=== PATIENT | male | born 1935 | race Caucasian/White ===

== ENCOUNTER 2022-03-02 12:36 | Inpatient (IN) ==
[2022-03-02] MEDS ORDERED: 0.9 % SODIUM CHLORIDE 1,000 ML IV ONE ×3 (12:48→15:37)
--- NOTE | 2022-03-02 12:57 | Emergency Department Note ---
HPI General Chief complaint: Blood Sugar Problem Stated complaint: UTI Time Seen by Provider: 03/02/22 12:55 Source: patient Mode of arrival: wheelchair Limitations: no limitations History of Present Illness HPI Narrative: 86yo M with PMH of insulin dependent T2DM, HTN, NPH with [employer] shunt dementia, and HTN p/w hyperglycemia. Patient has been progressively fatigued and weaker than usual for the last week. He was diagnosed with a UTI last week and is finishing a course of antibiotics. Family has been checking his blood sugar at home and noted it to be consistently high. He was also diagnosed with COVID via home test this week. Patient is sleepy but arousable. He denies pain anywhere. No GAMA , vision changes, numbness, extremity weakness, chest pain, SOB, cough, dysuria, or leg swelling. also with COVID. Related Data Home Medications Medication Instructions Recorded Confirmed ferrous sulfate 325 mg (65 mg 325 mg PO HS 11/18/16 03/02/22 iron) tablet (Feosol) cyanocobalamin (vitamin B-12) 1,000 mcg PO QDAY 01/20/19 03/02/22 1,000 mcg capsule memantine 10 mg tablet (Namenda) 10 mg PO BID 01/20/19 03/02/22 donepezil 10 mg tablet 20 mg PO HS 03/11/20 03/02/22 aspirin 81 mg tablet,delayed 81 mg PO .every other day 10/30/21 03/02/22 release (Adult Aspirin Regimen) cholecalciferol (vitamin D3) 25 1,000 unit PO BID 10/31/21 03/02/22 mcg (1,000 unit) capsule insulin glargine 100 unit/mL (3 14 unit subcut HS 03/02/22 mL) subcutaneous pen (Lantus Solostar U-100 Insulin) insulin lispro 100 unit/mL 40 unit subcut QDAY 03/02/22 subcutaneous pen (Humalog KwikPen (U-100) Insulin) levothyroxine 50 mcg capsule 50 mcg PO QDAY 03/02/22 03/02/22 lisinopril 40 mg tablet 1 tab PO QDAY blood pressure 03/02/22 03/02/22 omeprazole 40 mg capsule,delayed 40 mg PO DAILY 03/02/22 03/02/22 release tamsulosin 0.4 mg capsule 0.4 mg PO HS 03/02/22 03/02/22 Allergies Allergy/AdvReac Type Severity Reaction Status Date / Time No Known Drug Allergies Allergy Verified 03/02/22 12:47 MRI/shunt AdvReac Unknown Other Uncoded 12/12/21 09:17 Review of Systems ROS ROS Narrative: Narrative: Constitutional: Denies fever Eyes: Denies vision change ENT ED: Denies throat pain Cardiovascular: Denies chest pain Respiratory: Denies shortness of breath or cough Gastrointestinal: Denies abdominal pain, nausea or vomiting Genitourinary: Denies dysuria Integumentary: Denies rash Neurological: Reports weakness; Denies headache Psychiatric: Denies anxiety Endocrine: Reports fatigue; Denies heat or cold intolerance Hematological/Lymphatic: Denies easy bruising PFSH Narrative Patient History Narrative: Narrative: Medical/Surgical/Family History All Active Problems (Updated 03/02/22 @ 22:07 by Jonathan Dong MD) DKA (diabetic ketoacidosis) (Acute) High anion gap metabolic acidosis (Acute) Complicated UTI (urinary tract infection) (Acute) COVID-19 (Acute) Severe hyperglycemia due to diabetes mellitus (Acute) DKA (diabetic ketoacidosis) (Acute) Acid reflux (Chronic) Hyperlipidemia (Chronic) Impotence, organic (Chronic) Tinnitus (Chronic) Benign localized prostatic hyperplasia with lower urinary tract symptoms (LUTS) (Chronic) Carotid stenosis, right (Chronic) Elevated PSA (Chronic) HTN (hypertension) (Chronic) Hypothyroidism (Chronic) Anemia (Chronic) Normal pressure hydrocephalus (Chronic) Paresthesia and pain of right extremity (Acute) Hypovitaminosis D (Chronic) Cantu's esophagus (Chronic) Pulmonary infiltrate (Acute) Solitary pulmonary nodule (Chronic) Encounter for Medicare annual wellness exam (Acute) Wound of foot (Acute) Urinary frequency (Acute) Incomplete emptying of bladder (Acute) Urinary stress incontinence, male (Acute) 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, with long-term current use of insulin (Chronic) 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) Physical deconditioning (Chronic) Dementia (Chronic) Medical History Acid reflux Benign localized prostatic hyperplasia with lower urinary tract symptoms (LUTS) Dementia 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, with long-term current use of insulin Encounter for Medicare annual wellness exam Hyperlipidemia Impotence, 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 Normal pressure hydrocephalus Physical deconditioning Pulmonary infiltrate Solitary pulmonary nodule Tinnitus Left ear Urinary frequency Surgical History H/O colonoscopy History of intraocular lens implant Bilateral History of tonsillectomy and adenoidectomy History of 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.0 Hx of appendectomy Family History Unknown Asthma Diabetes Cancer Ischemic heart disease Father , at age 36 , instantaneous from appendicitis Social History Smoking Status: Never smoker Alcohol Intake Frequency: does not drink Substance Use: does not use Exam Narrative Narrative: Narrative: General Limitations: no limitations General appearance: Present other (sleepy but arousable) Head Head: Present atraumatic and normocephalic Eye Eye: Present normal appearance, PERRL and EOMI; Absent scleral icterus, conjunctival injection or nystagmus ENT ENT: Present mucous membranes moist Neck Neck: Present normal inspection, full ROM, trachea midline and tenderness; Absent meningismus Chest Chest: Present symmetric chest wall rise Respiratory Respiratory: Present normal lung sounds bilaterally; Absent respiratory distress, rales/crackles, wheezes, stridor or accessory muscle use Cardiovascular Cardiovascular: Present regular rate and normal rhythm; Absent systolic murmur or diastolic murmur Adbominal Abdominal: Present soft; Absent distention, tenderness, guarding, rebound, rigidity or mass Extremities Extremities: Present normal inspection; Absent pretibial edema Back Back: Absent CVA tenderness (R) or CVA tenderness (L) Neurological Neurological: Present alert, oriented X3 and CN II-XII intact; Absent motor sensory deficit Psychiatric Psychiatric: Present normal affect and normal mood Skin Skin: Present warm (WNL) and dry Course Vital Signs Vital signs: Vital Signs Temperature 98.7 F 03/02/22 12:45 Pulse Rate 73 03/02/22 12:45 Respiratory Rate 14 03/02/22 12:45 Blood Pressure 134/70 03/02/22 12:45 Pulse Oximetry (%) 95 03/02/22 12:45 Oxygen Delivery Method 03/02/22 12:45 Temperature 98.4 F 03/02/22 21:24 Pulse Rate 77 03/02/22 21:24 Respiratory Rate 16 03/02/22 21:24 Blood Pressure 145/68 03/02/22 21:20 Pulse Oximetry (%) 94 03/02/22 21:24 Oxygen Delivery Method 03/02/22 19:44 Oxygen Flow Rate (L/min) 0 03/02/22 18:02 MDM MDM Narrative Medical decision making narrative: 86yo M p/w hyperglycemia and weakness. VS are stable. Glucose is 666, mild acidosis present with elevated lactic acid, elevated ketones, and elevated anion gap consistent with DKA. 2L NS given. K is 4.6, addition 20mEq ordered. Insulin drip ordered at 7u/h. CXR with no acute findings. UA is pending. Laboratory results per ED i-STAT testing: Chem8 Na: 135 K: 4.6 Cl: 102 iCa: 1.19 CO2: 16 Glu: 666 BUN: 52 Crea: 1.7 A Hct: 42 VBG pH:7.291 pCO: 30.8 pO2: 35 HCO3: 14.8 Lactate: 2.[address] Vaughn hospitalist. Will admit for DKA, patient and family understanding with plan. Lab Data Lab results reviewed: Yes I reviewed the patient's lab results. Result diagrams: 03/02/22 12:55 03/02/22 16:51 Labs: Lab Results 03/02/22 03/02/22 03/02/22 Range/Units 12:55 12:55 12:55 WBC 10.9 (4.5-11.0) K/mcL RBC 4.50 L (4.63-6.08) M/mcL Hgb 13.1 L (13.7-17.5) g/dL Hct 41.0 (40.1-51.0) % MCV 91.1 (80.0-100.0) fL MCH 29.1 (26.0-34.0) pg MCHC 32.0 (31.0-36.0) g/dL RDW 13.9 (11.5-14.5) % Plt Count 354 (140-440) K/mcL MPV 9.6 (7.4-10.4) fL Immature Gran % (Auto) 0.2 (0.0-0.5) % Neut % (Auto) 87.3 H (38.0-78.0) % Lymph % (Auto) 6.2 L (15.5-49.0) % [place] % (Auto) 6.2 (1.0-12.0) % Eos % (Auto) 0 (0.0-7.0) % Baso % (Auto) 0.1 (0.0-2.0) % Lymph # (Auto) 0.68 L (1.50-4.80) K/mcL [place] # (Auto) 0.67 (0.10-0.90) K/mcL Eos # (Auto) 0 (0.00-0.70) K/mcL Baso # (Auto) 0.01 (0.00-0.30) K/mcL Immature Gran # 0.02 (0.00-0.05) K/mcl Absolute Neutrophils 9.51 H (1.80-8.00) K/mcL Magnesium 2.8 H (1.6-2.5) mg/dL Beta-Hydroxybutyrate 6.68 H (<0.27) mmol/L ED POC Tests ED POC Tests: JENNIFER - SARS Antigen Negative Radiology Data Radiology results reviewed: Yes I reviewed the patient's radiology results. Radiology results narrative: Ordering Physician:Jonathan Dong M.D. Date of Service:03/02/22 Procedure(s):XR chest 1V portable INDICATION: weakness, COVID + TECHNIQUE: AP portable semiupright chest x-ray COMPARISON: Previous chest CT scans dated 02/23/2018, 11/03/2017, 07/29/2017 FINDINGS:Incidental note is made of a right-sided ventriculoperitoneal shunt catheter Lungs:Focal parenchymal density in the superior segment of the left lower lobe is not visualized. No focal pulmonary parenchymal infiltrate or mass Heart, vascular:No significant cardiomegaly. Pulmonary vascularity is normal. No pulmonary edema or pulmonary congestion Mediastinum, jorge:No mediastinal widening. No hilar mass Pleura:No pleural fluid. No pleural-based mass or calcification Skeletal:Negative. IMPRESSION: Negative AP chest x-ray Interpreted and Authenticated by: Sixto Meneses 03/02/22 [id number] Supervisor Transcribing Operators: <Electronically signed by Sixto Meneses M.D. in [place]> 03/02/22 1331 Discharge Plan Patient/Caregiver Discharge Instructions Pt seen by VASCULAR MANAGER/PA only: No Clinical Impression: DKA (diabetic ketoacidosis) Patient Disposition: Xfer As Inpt ([facility]) Condition: Fair Discharge Date/Time: 03/02/22 16:30
--- NOTE | 2022-03-02 13:35 | XRay Report ---
INDICATION: weakness, COVID + TECHNIQUE: AP portable semiupright chest x-ray COMPARISON: Previous chest CT scans dated 02/23/2018, 11/03/2017, 07/29/2017 FINDINGS:Incidental note is made of a right-sided ventriculoperitoneal shunt catheter Lungs:Focal parenchymal density in the superior segment of the left lower lobe is not visualized. No focal pulmonary parenchymal infiltrate or mass Heart, vascular:No significant cardiomegaly. Pulmonary vascularity is normal. No pulmonary edema or pulmonary congestion Mediastinum, jorge:No mediastinal widening. No hilar mass Pleura:No pleural fluid. No pleural-based mass or calcification Skeletal:Negative. IMPRESSION: Negative AP chest x-ray Interpreted and Authenticated by: Sixto Meneses 03/02/22
[2022-03-02 14:10] LABS: Basophils # (Auto) 0.01 K/mcL (0.00-0.30); Basophils % (Auto) 0.1 % (0.0-2.0); Eosinophils # (Auto) 0 K/mcL (0.00-0.70); Eosinophils % (Auto) 0 % (0.0-7.0); Hemoglobin 13.1 g/dL (13.7-17.5); Lymphocytes # (Auto) 0.68 K/mcL (1.50-4.80); Lymphocytes % (Auto) 6.2 % (15.5-49.0); Mean Cell Volume 91.1 fL (80.0-100.0); Mean Platelet Volume 9.6 fL (7.4-10.4); Monocytes # (Auto) 0.67 K/mcL (0.10-0.90); Monocytes % (Auto) 6.2 % (1.0-12.0); Neutrophils % (Auto) 87.3 % (38.0-78.0); Platelet Count 354 K/mcL (140-440); Red Cell Distribution Width 13.9 % (11.5-14.5); WBC 10.9 K/mcL (4.5-11.0)
[2022-03-02 14:41] LABS: Beta Hydroxybutyrate 6.68 mmol/L (<0.27)
[2022-03-02] MEDS ORDERED: POTASSIUM CHLORIDE 20 MEQ in DEXTROSE 5% IN WATER 250 ML IV ONE (15:25)
[2022-03-02] MEDS: INSULIN REGULAR, HUMAN 50 UNIT in 0.9 % SODIUM CHLORIDE 99.5 ML IV SCH ×2 (16:05→21:15)
[2022-03-02] MEDS ORDERED: ACETAMINOPHEN 325 MG TABLET PO PRN (16:35)
[2022-03-02] MEDS ORDERED: ONDANSETRON 4 MG/2 ML VIAL IV PRN (16:35)
[2022-03-02] MEDS ORDERED: INSULIN REGULAR, HUMAN 1 UNIT/0.01 ML UNIT IV PRN (17:00)
--- NOTE | 2022-03-02 17:11 | Internal Med History&Physical ---
HPI History of Present Illness Patient information: Note initiated : 03/02/22 at 5:05 pm Service Date, if different from initiated Date: [] Patient: Ronald Purcell a 86 y/o M admitted on 03/02/22 for UTI. Chief Complaint: [AMS, hyperglycemia] Chief complaint: DKA History of present illness: Mr. Purcell is a 86 year old M with a past medical history significant for normal pressure hydrocephalus status post [employer] shunt, dementia, insulin-dependent diabetes mellitus, hypothyroidism, and hypertension who presents to the hospital with severe hyperglycemia. The patient is unable to provide a reliable history however the and daughter were present at the bedside to provide a secondhand account. They state that for the last 2 days, they have been having difficulty controlling the patient's blood sugars despite insulin. He has not had much of an appetite. He has not been eating or drinking much. The patient was recently diagnosed with COVID-19 last week and was treated with Paxlovid. Unfortunately, the patient also developed a urinary tract infection and was treated with cefuroxime. On arrival, he was hemodynamically stable and afebrile. He was found to have a blood sugar greater than 600. His anion gap was elevated and he was found to be acidotic. He was positive for ketones. He was given 2 L bolus in the ER and started on an insulin infusion. The hospitalist service was asked admit the patient for further management and evaluation of his diabetic ketoacidosis Review of Systems ROS unobtainable: due to mental status PFSH PFSH All Active Problems (Updated 03/02/22 @ 17:10 by Pal Vaughn MD) High anion gap metabolic acidosis (Acute) Complicated UTI (urinary tract infection) (Acute) COVID-19 (Acute) Severe hyperglycemia due to diabetes mellitus (Acute) DKA (diabetic ketoacidosis) (Acute) Acid reflux (Chronic) Hyperlipidemia (Chronic) Impotence, organic (Chronic) Tinnitus (Chronic) Benign localized prostatic hyperplasia with lower urinary tract symptoms (LUTS) (Chronic) Carotid stenosis, right (Chronic) Elevated PSA (Chronic) HTN (hypertension) (Chronic) Hypothyroidism (Chronic) Anemia (Chronic) Normal pressure hydrocephalus (Chronic) Paresthesia and pain of right extremity (Acute) Hypovitaminosis D (Chronic) Cantu's esophagus (Chronic) Pulmonary infiltrate (Acute) Solitary pulmonary nodule (Chronic) Encounter for Medicare annual wellness exam (Acute) Wound of foot (Acute) Urinary frequency (Acute) Incomplete emptying of bladder (Acute) Urinary stress incontinence, male (Acute) 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, with long-term current use of insulin (Chronic) 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) Physical deconditioning (Chronic) Dementia (Chronic) Medical History Acid reflux Benign localized prostatic hyperplasia with lower urinary tract symptoms (LUTS) Dementia 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, with long-term current use of insulin Encounter for Medicare annual wellness exam Hyperlipidemia Impotence, 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 Normal pressure hydrocephalus Physical deconditioning Pulmonary infiltrate Solitary pulmonary nodule Tinnitus Left ear Urinary frequency Surgical History H/O colonoscopy History of intraocular lens implant Bilateral History of tonsillectomy and adenoidectomy History of 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.0 Hx of appendectomy Family History Unknown Asthma Diabetes Cancer Ischemic heart disease Father , at age 36 , instantaneous from appendicitis Social History marital status: education level: college other: Children-10 Grandchildren-33 smoking status: Never smoker alcohol intake frequency: does not drink substance use type: does not use MEDS/ALLERGIES Home Medications and Allergies Home Medications Medication Instructions Recorded Confirmed Type ferrous sulfate 325 mg (65 mg 325 mg PO QDAY 11/18/16 12/12/21 History iron) tablet (Feosol) cyanocobalamin (vitamin B-12) 1,000 mcg PO QDAY 01/20/19 12/12/21 History 1,000 mcg capsule memantine 10 mg tablet (Namenda) 10 mg PO BID 01/20/19 12/12/21 History donepezil 10 mg tablet 10 mg PO BID 03/11/20 12/12/21 History aspirin 81 mg tablet,delayed 81 mg PO .every other day 10/30/21 12/12/21 History release (Adult Aspirin Regimen) omeprazole 40 mg capsule,delayed 40 mg PO QDAY #90 caps 04/14/22 05/27/22 Rx release cholecalciferol (vitamin D3) 25 1,000 unit PO .daily 10/31/21 12/12/21 History mcg (1,000 unit) capsule tamsulosin 0.4 mg capsule 0.4 mg PO QDAY #90 caps 11/26/21 12/12/21 Rx insulin glargine 100 unit/mL (3 14 unit subcut HS 03/02/22 03/02/22 History mL) subcutaneous pen (Lantus Solostar U-100 Insulin) insulin lispro 100 unit/mL 40 unit subcut QDAY 03/02/22 03/02/22 History subcutaneous pen (Humalog KwikPen (U-100) Insulin) lisinopril 40 mg tablet 1 tab PO QDAY blood pressure 03/02/22 03/02/22 History Allergies Allergy/AdvReac Type Severity Reaction Status Date / Time No Known Drug Allergies Allergy Verified 03/02/22 12:47 MRI/shunt AdvReac Unknown Other Uncoded 12/12/21 09:17 EXAM Constitutional Vitals: Temp Pulse Resp BP Pulse Ox O2 Del Method 98.7 F 74 19 171/78 97 03/02/22 12:45 03/02/22 16:16 03/02/22 16:16 03/02/22 16:16 03/02/22 16:16 03/02/22 13:30 General appearance: average body habitus Head Head exam: Present atraumatic, normal inspection and normocephalic Eye Eye exam: Present EOMI, normal appearance and PERRL; Absent conjunctival injection ENT ENT exam: Present mucous membranes dry and normal exam Neck Neck exam: Present full ROM; Absent lymphadenopathy Respiratory Respiratory exam: Present normal respiratory exam and CTAB; Absent decreased breath sounds, respiratory distress or wheezes Cardiovascular Cardiovascular exam: Present normal rate and rhythm and RRR; Absent JVD GI/Abdominal GI/Abdominal exam: Present normal bowel sounds and soft; Absent diminished bowel sounds, distended, guarding, mass, rebound or tenderness Neurological Exam Neurological exam: Present alert and altered Psychiatric Psychiatric exam: Present normal affect and normal mood Skin Skin exam: Present intact and warm; Absent erythema, pallor, petechiae or rash DATA Data Completed and Pending Labs: Labs from last 24 hours 03/02/22 03/02/22 03/02/22 16:51 12:55 12:55 WBC RBC Hgb Hct MCV MCH MCHC RDW Plt Count MPV Immature Gran % (Auto) Neut % (Auto) Lymph % (Auto) [place] % (Auto) Eos % (Auto) Baso % (Auto) Lymph # (Auto) [place] # (Auto) Eos # (Auto) Baso # (Auto) Immature Gran # Absolute Neutrophils Sodium Pending Potassium Pending Chloride Pending Carbon Dioxide Pending Anion Gap Pending BUN Pending Creatinine Pending GFR Calculation Pending Glucose Pending Calcium Pending Magnesium 2.8 H Beta-Hydroxybutyrate 6.68 H 03/02/22 12:55 WBC 10.9 RBC 4.50 L Hgb 13.1 L Hct 41.0 MCV 91.1 MCH 29.1 MCHC 32.0 RDW 13.9 Plt Count 354 MPV 9.6 Immature Gran % (Auto) 0.2 Neut % (Auto) 87.3 H Lymph % (Auto) 6.2 L [place] % (Auto) 6.2 Eos % (Auto) 0 Baso % (Auto) 0.1 Lymph # (Auto) 0.68 L [place] # (Auto) 0.67 Eos # (Auto) 0 Baso # (Auto) 0.01 Immature Gran # 0.02 Absolute Neutrophils 9.51 H Sodium Potassium Chloride Carbon Dioxide Anion Gap BUN Creatinine GFR Calculation Glucose Calcium Magnesium Beta-Hydroxybutyrate A/P Assessment and plan (1) Dementia: Status: Chronic Qualifiers: Dementia type: unspecified type Dementia behavioral disturbance: without behavioral disturbance Qualified Code(s): F03.90 - Unspecified dementia without behavioral disturbance (2) Hypothyroidism: Status: Chronic Qualifiers: Hypothyroidism type: acquired Qualified Code(s): E03.9 - Hypothyroidism, unspecified (3) HTN (hypertension): Status: Chronic Qualifiers: Hypertension type: essential hypertension Qualified Code(s): I10 - Essential (primary) hypertension (4) Normal pressure hydrocephalus: Status: Chronic (5) DKA (diabetic ketoacidosis): Status: Acute (6) Severe hyperglycemia due to diabetes mellitus: Status: Acute (7) COVID-19: Status: Acute (8) Complicated UTI (urinary tract infection): Status: Acute (9) High anion gap metabolic acidosis: Status: Acute Narrative A/P Narrative: The patient likely developed diabetic ketoacidosis due to underlying infectious process as he was diagnosed with COVID and a urinary tract infection unfortunately. In terms of his DKA, we will continue insulin infusion and when his blood sugars drop below 300, will start D5W. We will stop the insulin infusion once his anion gap is closed. We will monitor and replete his electrolytes closely. Continue LR 100 cc an hour. The patient will be started on ceftriaxone for his urinary tract infection. We will touch base with infection prevention regarding isolation precautions. His medication reconciliation is pending. Time Spent With Patient Time: Total time spent is greater than 50% in coordination of care (as documented) at patient's floor/unit and/or counseling patient: Total time spent with greater than 50% in coordination of care (as documented) at patient's floor/unit and/or counseling patient:: Greater than 70 minutes
[2022-03-02] MEDS: cefTRIAXone 1 GM VIAL IV SCH (17:12)
[2022-03-02] MEDS ORDERED: INSULIN REGULAR, HUMAN 1 UNIT/0.01 ML UNIT ONE ×2 (17:20→21:13)
[2022-03-02] MEDS: LACTATED RINGERS 1,000 ML IV SCH (18:08)
[2022-03-02] MEDS: DEXTROSE 5%-1/2NS 1,000 ML IV SCH (20:05)
[2022-03-02 20:36] LABS: Blood Urea Nitrogen 50 mg/dL (8-23); Calcium 8.5 mg/dL (8.6-10.4); Carbon Dioxide 16 mmol/L (22-30); Chloride 103 mmol/L (96-108); Glomerular Filtration Rate 41; Glucose 521 mg/dL (70-105)
[2022-03-02] MEDS: 0.9 % SODIUM CHLORIDE 10 ML SYRINGE IV SCH (21:13)
[2022-03-03 00:04] LABS: Blood Urea Nitrogen 44 mg/dL (8-23); Calcium 8.6 mg/dL (8.6-10.4); Carbon Dioxide 20 mmol/L (22-30); Chloride 110 mmol/L (96-108); Glomerular Filtration Rate 49; Glucose 203 mg/dL (70-105)
[2022-03-03] MEDS: LACTATED RINGERS 1,000 ML IV SCH ×3 (01:00→21:53)
[2022-03-03] MEDS ORDERED: DEXTROSE 50% 50 ML SYRINGE IV ONE (03:34)
[2022-03-03] MEDS ORDERED: DEXTROSE 50% 50 ML SYRINGE IV PRN (05:52)
[2022-03-03] MEDS: 0.9 % SODIUM CHLORIDE 10 ML SYRINGE IV SCH ×3 (06:04→20:32)
[2022-03-03] MEDS: DEXTROSE 5%-1/2NS 1,000 ML IV SCH (06:04)
[2022-03-03 06:10] LABS: Basophils # (Auto) 0.01 K/mcL (0.00-0.30); Basophils % (Auto) 0.1 % (0.0-2.0); Eosinophils # (Auto) 0 K/mcL (0.00-0.70); Eosinophils % (Auto) 0 % (0.0-7.0); Hematocrit 35.4 % (40.1-51.0); Hemoglobin 11.4 g/dL (13.7-17.5); Lymphocytes % (Auto) 4.4 % (15.5-49.0); Mean Cell Volume 90.8 fL (80.0-100.0); Mean Corpuscular HGB Conc 32.2 g/dL (31.0-36.0); Mean Platelet Volume 9.5 fL (7.4-10.4); Monocytes # (Auto) 1.08 K/mcL (0.10-0.90); Neutrophils % (Auto) 83.3 % (38.0-78.0); Platelet Count 261 K/mcL (140-440)
[2022-03-03 06:43] LABS: Phosphorous 1.8 mg/dL (2.5-4.5)
[2022-03-03 06:44] LABS: Blood Urea Nitrogen 39 mg/dL (8-23); Calcium 8.4 mg/dL (8.6-10.4); Carbon Dioxide 16 mmol/L (22-30); Chloride 110 mmol/L (96-108); Glomerular Filtration Rate 60; Glucose 193 mg/dL (70-105)
[2022-03-03] MEDS ORDERED: DEXTROSE 50% 50 ML VIAL IV PRN (08:28)
[2022-03-03] MEDS ORDERED: DEXTROSE 31 GM ORAL.SUSP PO PRN (08:28)
[2022-03-03] MEDS: ENOXAPARIN 40 MG/0.4 ML SYRINGE SQ SCH (08:37)
[2022-03-03] MEDS: INSULIN LISPRO 1 UNIT/0.01 ML UNIT SQ SCH ×4 (08:38→20:31)
[2022-03-03] MEDS: INSULIN GLARGINE, HUMAN 1 UNIT/0.01 ML SQ SCH (08:38)
[2022-03-03] MEDS: cefTRIAXone 1 GM VIAL IV SCH (08:38)
[2022-03-03] MEDS: OMEPRAZOLE 20 MG CAPSULE PO SCH (08:38)
[2022-03-03] MEDS: MEMANTINE 10 MG TABLET PO SCH ×2 (08:53→20:31)
--- NOTE | 2022-03-03 11:59 | Internal Med Progress Note ---
SUBJECTIVE Subjective Patient information: Note initiated : 03/03/22 at 11:56 am Service Date, if different from initiated Date: [] Patient: Ronald Purcell 86 y/o M admitted on 03/02/22 for UTI. Chief Complaint: [Hyperglycemia] Principal diagnosis: DKA, recent urinary tract infection, recent COVID-19 infection Interval history: The patient's insulin infusion was stopped last night. He is doing well. His blood sugar are better controlled. There is no issues with sundowning or behavioral disturbance. He remains calm and cooperative. Discussed the case with the RN. Constitutional Vitals: Vital Signs Temp Pulse Resp BP Pulse Ox O2 Del Method O2 Flow Rate 99.3 F H 78 27 H 124/66 96 0 03/03/22 08:01 03/03/22 11:00 03/03/22 11:00 03/03/22 11:00 03/03/22 11:00 03/03/22 02:01 03/02/22 18:02 Period Temp Pulse Resp BP Sys/Saravia Pulse Ox O2 Del Method O2 Flow Rate Last 24 Hr 98.1 F-99.3 F 61-83 14-27 118-176/60-90 91-100 Room Air-Room Air 0-0 Intake and Output 03/02/22 03/03/22 03/03/22 21:59 05:59 13:59 Intake Total 2407 2208 1007 Output Total 1 875 Balance 2406 1333 1007 Weight 57.294 kg Intake & Output: Intake & Output 03/02/22 03/03/22 03/03/22 21:59 05:59 13:59 Intake Total 2407 2208 1007 Output Total 1 875 Balance 2406 1333 1007 Weight 57.294 kg Intake: IV 2407 2208 607 Sodium Chloride 0.9% 1,000 ml @ 2108 1000 500 mls/hr IV .Q2H ONE Rx#: [id number] Dextrose 5%-1/2Ns IV Solution 1 465 ,000 ml @ 100 mls/hr IV .Q10H DEAN Rx#:[id number] HumuLIN R 50 UNIT In Sodium 100 86 Chloride 0.9% 99.5 ml @ 7 UNIT/ HR 14 mls/hr IV DUR DEAN Rx#: [id number] Lactated Ringers 1,000 ml @ 100 195 393 607 mls/hr IV .Q10H DEAN Rx#: [id number] Potassium Chloride 20 Meq In 4 264 Dextrose 5% in Water 250 ml @ 130 mls/hr IV ONCE ONE Rx#: [id number] Oral 400 Output: Urine Catheter Amount 875 Void Amount 0 # of times incontinent of urine 1 Other: Meal Breakfast Percent of Meal Consumed 25% Feeding Ability Assist with Tray Set Up Urine Appearance Clear Uretheral (Grier) Clear Urine Color Dark Yellow Uretheral (Grier) Dark Yellow Urine Odor Strong Uretheral (Grier) Strong Stool Size Small Large Stool Color Brown Brown Stool Consistency Soft Soft Liquid # Voids 0 # Bowel Movements 0 1 1 # of times incontinent of 0 1 1 Bowels Head Head exam: Present atraumatic and normal inspection Eye Eye exam: Present normal appearance ENT ENT exam: Present mucous membranes moist, normal exam and normal external ear exam Neck Neck exam: Present normal inspection Respiratory Respiratory exam: Present normal respiratory exam Cardiovascular Cardiovascular exam: Present normal rate and rhythm GI/Abdominal GI/Abdominal exam: Present normal bowel sounds Back Exam Back exam: Present normal inspection Neurological Exam Neurological exam: Present alert Skin Skin exam: Present intact and warm OBJ DATA Labs CBC & Chem 7: 03/03/22 05:28 03/03/22 05:28 Labs: Abnormal Lab Results 03/03/22 03/03/22 03/03/22 05:28 05:28 05:28 RBC 3.90 L Hgb 11.4 L Hct 35.4 L Neut % (Auto) 83.3 H Lymph % (Auto) 4.4 L Lymph # (Auto) 0.40 L Terrell # (Auto) 1.08 H Absolute Neutrophils Chloride 110 H Carbon Dioxide 16 L Anion Gap BUN 39 H Creatinine Glucose 193 H Calcium 8.4 L Phosphorus 1.8 L Magnesium Beta-Hydroxybutyrate 03/02/22 03/02/22 03/02/22 22:45 16:51 12:55 RBC Hgb Hct Neut % (Auto) Lymph % (Auto) Lymph # (Auto) Terrell # (Auto) Absolute Neutrophils Chloride 110 H Carbon Dioxide 20 L 16 L Anion Gap 19.0 H BUN 44 H 50 H Creatinine 1.3 H 1.5 H Glucose 203 H 521 H* Calcium 8.5 L Phosphorus Magnesium 2.8 H Beta-Hydroxybutyrate 03/02/22 03/02/22 12:55 12:55 RBC 4.50 L Hgb 13.1 L Hct Neut % (Auto) 87.3 H Lymph % (Auto) 6.2 L Lymph # (Auto) 0.68 L Terrell # (Auto) Absolute Neutrophils 9.51 H Chloride Carbon Dioxide Anion Gap BUN Creatinine Glucose Calcium Phosphorus Magnesium Beta-Hydroxybutyrate 6.68 H Meds: Medications Acetaminophen (Acetaminophen 325 Mg Tablet) 650 mg PO Q4-6HP PRN; Protocol PRN Reason: Per Pain Protocol/Fever > 101 Ceftriaxone Sodium (Ceftriaxone 1 Gm Vial) 1 gm IV Q24H DEAN; Protocol Last Admin: 03/03/22 08:38 Dose: 1 gm Dextrose (Dextrose 50% 50 Ml Syringe) 50 ml IV UD PRN PRN Reason: Hypoglycemia Dextrose (Dextrose 50% 50 Ml Vial) 0 ml IV UD PRN PRN Reason: Per Sliding Scale Diagnostic Test (Pha) (Accu-Chek 1 Each Strip) 1 each FS ACHS [facility] Last Admin: 03/03/22 11:00 Dose: 1 each Donepezil HCl (Donepezil 10 Mg Tablet) 20 mg PO HS DEAN Enoxaparin Sodium (Enoxaparin 40 Mg/0.4 Ml Syringe) 40 mg SQ DAILY [facility] Last Admin: 03/03/22 08:37 Dose: 40 mg Glucose (Dextrose 31 Gm Oral.Susp) 15 gm PO PRN PRN PRN Reason: Hypoglycemia Insulin Human Regular 50 unit/ (Sodium Chloride) 100 mls @ 14 mls/hr IV DUR [facility]; Protocol Last Titration: 03/03/22 01:00 Dose: Infused Lactated Ringer's (Lactated Ringers) 1,000 mls @ 100 mls/hr IV .Q10H DEAN Last Admin: 03/03/22 11:44 Dose: 100 mls/hr Dextrose/Sodium Chloride (Dextrose 5%-1/2ns Iv Solution) 1,000 mls @ 100 mls/hr IV .Q10H DEAN Last Admin: 03/03/22 06:04 Dose: Not Given Insulin Glargine (Insulin Glargine, Human 1 Unit/0.01 Ml) 30 unit SQ DAILY [facility] Last Admin: 03/03/22 08:38 Dose: 30 units Insulin Human Lispro (Insulin Lispro 1 Unit/0.01 Ml Unit) 0 unit SQ [facility]; Protocol Last Admin: 03/03/22 11:02 Dose: 6 units Insulin Human Regular (Insulin Regular, Human 1 Unit/0.01 Ml Unit) 6 unit IV Q1HP PRN PRN Reason: Insulin drip protocol Memantine (Memantine 10 Mg Tablet) 10 mg PO BID [facility] Last Admin: 03/03/22 08:53 Dose: 10 mg Omeprazole (Omeprazole 20 Mg Capsule) 40 mg PO DAILY [facility] Last Admin: 03/03/22 08:38 Dose: 40 mg Ondansetron HCl (Ondansetron 4 Mg/2 Ml Vial) 4 mg IV Q4-6HP PRN; Protocol PRN Reason: Nausea And Vomiting Sodium Chloride (0.9 % Sodium Chloride 10 Ml Syringe) 10 ml IV Q8 [facility] Last Admin: 03/03/22 06:04 Dose: Not Given Tamsulosin HCl (Tamsulosin 0.4 Mg Capsule) 0.4 mg PO HS [facility] A/P Assessment and plan (1) Dementia: Status: Chronic Qualifiers: Dementia type: unspecified type Dementia behavioral disturbance: without behavioral disturbance Qualified Code(s): F03.90 - Unspecified dementia without behavioral disturbance (2) Hypothyroidism: Status: Chronic Qualifiers: Hypothyroidism type: acquired Qualified Code(s): E03.9 - Hypothyroidism, unspecified (3) HTN (hypertension): Status: Chronic Qualifiers: Hypertension type: essential hypertension Qualified Code(s): I10 - Essential (primary) hypertension (4) Normal pressure hydrocephalus: Status: Chronic (5) DKA (diabetic ketoacidosis): Status: Acute (6) Severe hyperglycemia due to diabetes mellitus: Status: Acute (7) COVID-19: Status: Acute (8) Complicated UTI (urinary tract infection): Status: Acute (9) High anion gap metabolic acidosis: Status: Acute Narrative A/P Narrative: The patient likely developed diabetic ketoacidosis due to underlying infectious process as he was diagnosed with COVID and a urinary tract infection u nfortunately. In terms of his DKA, we will continue insulin infusion and when his blood sugars drop below 300, will start D5W. We will stop the insulin infusion once his anion gap is closed. We will monitor and replete his electrolytes closely. Continue LR 100 cc an hour. The patient will be started on ceftriaxone for his urinary tract infection. We will touch base with infection prevention regarding isolation precautions. His medication reconciliation is pending. 03/03: The patient's anion gap has now closed. I have started Lantus 30 units daily and insulin sliding scale. Her carb controlled diet has been resumed. He will continue ceftriaxone for his urinary tract infection. The patient is asymptomatic from a respiratory standpoint. He will need to work with physical therapy and Occupational Therapy. He may need a [facility] facility. The states that she has trouble looking after him at home. Time Spent With Patient Time: Total time spent is greater than 50% in coordination of care (as documented) at patient's floor/unit and/or counseling patient: Total time spent with greater than 50% in coordination of care (as documented) at patient's floor/unit and/or counseling patient:: 35 - 50 minutes QUALITY VTE Deep Vein Thrombosis/Pulmonary Embolism Present on Admission: No
[2022-03-03] MEDS: LISINOPRIL 20 MG TABLET PO SCH (19:02)
[2022-03-03] MEDS: TAMSULOSIN 0.4 MG CAPSULE PO SCH (20:31)
[2022-03-03] MEDS: DONEPEZIL 10 MG TABLET PO SCH (20:31)
[2022-03-04] MEDS: 0.9 % SODIUM CHLORIDE 10 ML SYRINGE IV SCH ×3 (05:41→21:02)
[2022-03-04 06:00] LABS: Basophils # (Auto) 0.01 K/mcL (0.00-0.30); Basophils % (Auto) 0.1 % (0.0-2.0); Eosinophils # (Auto) 0.01 K/mcL (0.00-0.70); Eosinophils % (Auto) 0.1 % (0.0-7.0); Hematocrit 36.3 % (40.1-51.0); Hemoglobin 11.9 g/dL (13.7-17.5); Lymphocytes # (Auto) 0.47 K/mcL (1.50-4.80); Lymphocytes % (Auto) 5.4 % (15.5-49.0); Mean Cell Volume 89.2 fL (80.0-100.0); Mean Corpuscular HGB Conc 32.8 g/dL (31.0-36.0); Mean Platelet Volume 9.6 fL (7.4-10.4); Monocytes # (Auto) 0.85 K/mcL (0.10-0.90); Monocytes % (Auto) 9.8 % (1.0-12.0); Neutrophils % (Auto) 84.4 % (38.0-78.0); Platelet Count 253 K/mcL (140-440); RBC 4.07 M/mcL (4.63-6.08); Red Cell Distribution Width 14.3 % (11.5-14.5); WBC 8.7 K/mcL (4.5-11.0)
[2022-03-04 06:19] LABS: Blood Urea Nitrogen 32 mg/dL (8-23); Calcium 8.2 mg/dL (8.6-10.4); Carbon Dioxide 23 mmol/L (22-30); Chloride 111 mmol/L (96-108); Glomerular Filtration Rate 77; Glucose 120 mg/dL (70-105)
[2022-03-04] MEDS: LACTATED RINGERS 1,000 ML IV SCH (07:59)
[2022-03-04] MEDS: INSULIN LISPRO 1 UNIT/0.01 ML UNIT SQ SCH ×4 (08:35→21:02)
[2022-03-04] MEDS: INSULIN GLARGINE, HUMAN 1 UNIT/0.01 ML SQ SCH (08:35)
[2022-03-04] MEDS: ENOXAPARIN 40 MG/0.4 ML SYRINGE SQ SCH (08:37)
[2022-03-04] MEDS: LISINOPRIL 20 MG TABLET PO SCH (08:38)
[2022-03-04] MEDS: OMEPRAZOLE 20 MG CAPSULE PO SCH (08:38)
[2022-03-04] MEDS: cefTRIAXone 1 GM VIAL IV SCH (08:38)
[2022-03-04] MEDS: MEMANTINE 10 MG TABLET PO SCH ×2 (08:41→21:02)
[2022-03-04] MEDS ORDERED: IOPAMIDOL 100 ML BOTTLE IV ONE (11:50)
--- NOTE | 2022-03-04 11:56 | Internal Med Progress Note ---
SUBJECTIVE Subjective Patient information: Note initiated : 03/04/22 at 11:50 am Service Date, if different from initiated Date: [] Patient: Ronald Purcell 86 y/o M admitted on 03/02/22 for UTI. Chief Complaint: [] Principal diagnosis: DKA, recent urinary tract infection, recent COVID-19 infection Interval history: The patient was resting comfortably in bed. He is minimally verbal. The family were present at the bedside to discuss plan of care. Constitutional Vitals: Vital Signs Temp Pulse Resp BP Pulse Ox O2 Del Method O2 Flow Rate 99.4 F H 90 26 H 128/68 94 0 03/04/22 08:01 03/04/22 10:01 03/04/22 10:01 03/04/22 10:01 03/04/22 10:01 03/04/22 01:35 03/04/22 06:01 Period Temp Pulse Resp BP Sys/Saravia Pulse Ox O2 Del Method O2 Flow Rate Last 24 Hr 99.1 F-100.5 F 64-136 14-28 116-182/62-91 90-96 Room Air-Room Air 0-0 Intake and Output 03/03/22 03/04/22 03/04/22 21:59 05:59 13:59 Intake Total 5247 495 5480 Output Total 900 260 200 Balance 150 -60 1760 Weight 58.196 kg Intake & Output: Intake & Output 03/03/22 03/04/22 03/04/22 21:59 05:59 13:59 Intake Total 8280 953 1243 Output Total 900 260 200 Balance 150 -60 1760 Weight 58.196 kg Intake: Nourishment/Supplement quantity 100 (ml) IV 1000 1000 Lactated Ringers 1,000 ml @ 100 1000 1000 mls/hr IV .Q10H [facility] Rx#: [id number] Oral 50 100 960 Output: Urine Catheter Amount 900 260 200 Other: Meal Dinner Breakfast Percent of Meal Consumed bites 75% Feeding Ability Total Assistance Total Assistance Nourishment/Supplement name Glucerna Urine Appearance Clear Clear Cloudy Uretheral (Grier) Clear Clear Urine Color Bright Yellow Bright Yellow Dark Yellow Uretheral (Grier) Bright Yellow Bright Yellow Urine Odor Normal Normal Uretheral (Grier) Normal Stool Size Moderate Small Moderate Stool Color Brown Brown Brown Stool Consistency Soft Soft Soft Liquid # Bowel Movements 1 1 1 # of times incontinent of 1 1 Bowels Head Head exam: Present atraumatic and normal inspection Eye Eye exam: Present normal appearance ENT ENT exam: Present mucous membranes moist, normal exam and normal external ear exam Neck Neck exam: Present normal inspection Respiratory Respiratory exam: Present normal respiratory exam Cardiovascular Cardiovascular exam: Present normal rate and rhythm GI/Abdominal GI/Abdominal exam: Present normal bowel sounds Back Exam Back exam: Present normal inspection Neurological Exam Neurological exam: Present alert Skin Skin exam: Present intact and warm OBJ DATA Labs CBC & Chem 7: 03/04/22 05:04 03/04/22 05:04 Labs: Abnormal Lab Results 03/04/22 03/04/22 03/03/22 05:04 05:04 05:28 RBC 4.07 L Hgb 11.9 L Hct 36.3 L Neut % (Auto) 84.4 H Lymph % (Auto) 5.4 L Lymph # (Auto) 0.47 L [place] # (Auto) Absolute Neutrophils Potassium 3.1 L Chloride 111 H 110 H Carbon Dioxide 16 L Anion Gap 7.0 L BUN 32 H 39 H Creatinine Glucose 120 H 193 H Calcium 8.2 L 8.4 L Phosphorus Magnesium Beta-Hydroxybutyrate 03/03/22 03/03/22 03/02/22 05:28 05:28 22:45 RBC 3.90 L Hgb 11.4 L Hct 35.4 L Neut % (Auto) 83.3 H Lymph % (Auto) 4.4 L Lymph # (Auto) 0.40 L [place] # (Auto) 1.08 H Absolute Neutrophils Potassium Chloride 110 H Carbon Dioxide 20 L Anion Gap BUN 44 H Creatinine 1.3 H Glucose 203 H Calcium Phosphorus 1.8 L Magnesium Beta-Hydroxybutyrate 03/02/22 03/02/22 03/02/22 16:51 12:55 12:55 RBC Hgb Hct Neut % (Auto) Lymph % (Auto) Lymph # (Auto) [place] # (Auto) Absolute Neutrophils Potassium Chloride Carbon Dioxide 16 L Anion Gap 19.0 H BUN 50 H Creatinine 1.5 H Glucose 521 H* Calcium 8.5 L Phosphorus Magnesium 2.8 H Beta-Hydroxybutyrate 6.68 H 03/02/22 12:55 RBC 4.50 L Hgb 13.1 L Hct Neut % (Auto) 87.3 H Lymph % (Auto) 6.2 L Lymph # (Auto) 0.68 L [place] # (Auto) Absolute Neutrophils 9.51 H Potassium Chloride Carbon Dioxide Anion Gap BUN Creatinine Glucose Calcium Phosphorus Magnesium Beta-Hydroxybutyrate Meds: Medications Acetaminophen (Acetaminophen 325 Mg Tablet) 650 mg PO Q4-6HP PRN; Protocol PRN Reason: Per Pain Protocol/Fever > 101 Ceftriaxone Sodium (Ceftriaxone 1 Gm Vial) 1 gm IV Q24H [facility]; Protocol Last Admin: 03/04/22 08:38 Dose: 1 gm Dextrose (Dextrose 50% 50 Ml Syringe) 50 ml IV UD PRN PRN Reason: Hypoglycemia Dextrose (Dextrose 50% 50 Ml Vial) 0 ml IV UD PRN PRN Reason: Per Sliding Scale Diagnostic Test (Pha) (Accu-Chek 1 Each Strip) 1 each FS ACHS [facility] Last Admin: 03/04/22 11:10 Dose: 1 each Donepezil HCl (Donepezil 10 Mg Tablet) 20 mg PO HS [facility] Last Admin: 03/03/22 20:31 Dose: 20 mg Enoxaparin Sodium (Enoxaparin 40 Mg/0.4 Ml Syringe) 40 mg SQ DAILY [facility] Last Admin: 03/04/22 08:37 Dose: 40 mg Glucose (Dextrose 31 Gm Oral.Susp) 15 gm PO PRN PRN PRN Reason: Hypoglycemia Insulin Human Regular 50 unit/ (Sodium Chloride) 100 mls @ 14 mls/hr IV DUR [facility]; Protocol Last Titration: 03/03/22 01:00 Dose: Infused Potassium Phosphate 40 meq/ (Dextrose) 509.0909 mls @ 127.273 mls/hr IV ONCE ONE Stop: 03/04/22 15:59 Insulin Glargine (Insulin Glargine, Human 1 Unit/0.01 Ml) 30 unit SQ DAILY [facility] Last Admin: 03/04/22 08:35 Dose: 30 units Insulin Human Lispro (Insulin Lispro 1 Unit/0.01 Ml Unit) 0 unit SQ ACHS [facility]; Protocol Last Admin: 03/04/22 11:13 Dose: 2 units Insulin Human Regular (Insulin Regular, Human 1 Unit/0.01 Ml Unit) 6 unit IV Q1HP PRN PRN Reason: Insulin drip protocol Lisinopril (Lisinopril 20 Mg Tablet) 40 mg PO DAILY [facility] Last Admin: 03/04/22 08:38 Dose: 40 mg Memantine (Memantine 10 Mg Tablet) 10 mg PO BID DE[facility] Last Admin: 03/04/22 08:41 Dose: 10 mg Omeprazole (Omeprazole 20 Mg Capsule) 40 mg PO DAILY [facility] Last Admin: 03/04/22 08:38 Dose: 40 mg Ondansetron HCl (Ondansetron 4 Mg/2 Ml Vial) 4 mg IV Q4-6HP PRN; Protocol PRN Reason: Nausea And Vomiting Sodium Chloride (0.9 % Sodium Chloride 10 Ml Syringe) 10 ml IV Q8 [facility] Last Admin: 03/04/22 05:41 Dose: Not Given Tamsulosin HCl (Tamsulosin 0.4 Mg Capsule) 0.4 mg PO HS [facility] Last Admin: 03/03/22 20:31 Dose: 0.4 mg A/P Assessment and plan (1) Dementia: Status: Chronic Qualifiers: Dementia type: unspecified type Dementia behavioral disturbance: without behavioral disturbance Qualified Code(s): F03.90 - Unspecified dementia without behavioral disturbance (2) Hypothyroidism: Status: Chronic Qualifiers: Hypothyroidism type: acquired Qualified Code(s): E03.9 - Hypothyroidism, unspecified (3) HTN (hypertension): Status: Chronic Qualifiers: Hypertension type: essential hypertension Qualified Code(s): I10 - Essential (primary) hypertension (4) Normal pressure hydrocephalus: Status: Chronic (5) DKA (diabetic ketoacidosis): Status: Acute (6) Severe hyperglycemia due to diabetes mellitus: Status: Acute (7) COVID-19: Status: Acute (8) Complicated UTI (urinary tract infection): Status: Acute (9) High anion gap metabolic acidosis: Status: Acute Narrative A/P Narrative: The patient likely developed diabetic ketoacidosis due to underlying infectious process as he was diagnosed with COVID and a urinary tract infection unfortunately. In terms of his DKA, we will continue insulin infusion and when his blood sugars drop below 300, will start D5W. We will stop the insulin infusion once his anion gap is closed. We will monitor and replete his electrolytes closely. Continue LR 100 cc an hour. The patient will be started on ceftriaxone for his urinary tract infection. We will touch base with infection prevention regarding isolation precautions. His medication reconciliation is pending. 03/03: The patient's anion gap has now closed. I have started Lantus 30 units daily and insulin sliding scale. Her carb controlled diet has been resumed. He will continue ceftriaxone for his urinary tract infection. The patient is asymptomatic from a respiratory standpoint. He will need to work with physical therapy and Occupational Therapy. He may need a senior care facility. The states that she has trouble looking after him at home. 03/04: Due to the patient's ongoing low-grade fevers, will obtain CT chest abdomen pelvis. He is having some liquid stool however has not had a temp greater than 100.4 and his white blood cell count was normal. We will start Imodium. He is continuing ceftriaxone for UTI. The patient's IV fluids will be discontinued today. His electrolytes will be replaced with K-Phos rider as his potassium and phosphorus were low. He will be transferred to [facility]. Social work and case management will look for placement Time Spent With Patient Time: Total time spent is greater than 50% in coordination of care (as documented) at patient's floor/unit and/or counseling patient: Total time spent with greater than 50% in coordination of care (as documented) at patient's floor/unit and/or counseling patient:: 35 - 50 minutes QUALITY VTE Deep Vein Thrombosis/Pulmonary Embolism Present on Admission: No
[2022-03-04] MEDS ORDERED: POTASSIUM PHOSPHATE 40 MEQ in DEXTROSE 5% IN WATER 500 ML IV ONE (12:00)
[2022-03-04] MEDS ORDERED: LOPERAMIDE 2 MG CAPSULE PO PRN (12:14)
--- NOTE | 2022-03-04 13:19 | Cat Scan Report ---
INDICATION: Ongoing fevers, recent UTI/COVID-19, dementia COMPARISON: Chest CT scans dated 02/23/2018 and 11/03/2017 TECHNIQUE: Axial images were obtained through the chest,abdomen and pelvis. Sagittally and coronally reformatted images. 80ml Isovue 370 injected intravenously. Oral contrast material was not administered FINDINGS: Suboptimal evaluation as there is very little subcutaneous or intra-abdominal fat for contrast. Patient was unable to suspend respiration. Chest CT: Lungs:Prominent tree in bud infiltrate throughout the right upper lobe. This is nonspecific but typically represents infection and bronchiolar obstruction. There are areas of consolidation in both lower lobes. Findings may be due to volume loss but pneumonia is possible. Mediastinum:No pathologic mediastinal adenopathy. No hilar mass. Thoracic aorta is normal without aneurysmal dilatation Heart: There is moderate cardiomegaly. No pericardial effusion Pleura:No significant pleural fluid. No pleural-based mass. No pleural calcifications Axilla, supraclavicular regions, chest wall:No pathologic axillary or supraclavicular adenopathy Musculoskeletal:Compression deformities of the T6, T7, and T12 vertebral bodies. No lytic or sclerotic lesions. Sternum is negative. No detectable rib fractures. Abdomen/Pelvis: Liver:Negative liver. No focal intrahepatic mass. Liver contour is smooth. There is no ascites Gallbladder, bilary:No calcified gallstones. No gallbladder wall thickening or pericholecystic fluid. No dilated bile ducts Spleen:No splenomegaly. No focal intrasplenic abnormality. Normal enhancement of splenic and portal veins. Pancreas:No pancreatic mass. No peripancreatic abnormality Adrenal glands:Negative Kidneys,ureters,bladder:No solid renal mass. No hydronephrosis. No obstructing or nonobstructing calculi. No hydroureter. No ureteral calculus. There is a Grier catheter within the urinary bladder Gastrointestinal:No detectable colonic mass. There is no diverticulitis. Negative small bowel. No mechanical small bowel obstruction. No bowel wall thickening. No focal abnormality. Negative stomach and duodenum. No focal abnormality. Appendix: The appendix is not visualized. Patient apparently has a history of previous appendectomy Vascular:No abdominal aortic aneurysm. Normal celiac trunk and superior mesenteric artery . Lymphatic:No pathologic retroperitoneal or mesenteric adenopathy Mesentery, peritoneum:No free intraperitoneal fluid. No intra-abdominal abscess. No pneumoperitoneum. There is a ventriculoperitoneal shunt catheter within the peritoneal space. Shunt catheter is in the subcutaneous soft tissues of the right hemithorax Reproductive:Prostate is not significantly enlarged Musculoskeletal:Multilevel degenerative disc disease. No lumbar compression fractures. Sacrum and pelvis are negative. No acute fracture. Hips are negative. There is no anterior abdominal wall or inguinal hernia There is generalized subcutaneous edema which may represent anasarca IMPRESSION: 1. Prominent tree-in-bud infiltrate within the right upper lobe is consistent with infection 2. Areas of consolidation in the right lower lobe may represent volume loss or pneumonia 3. Compression deformities of the T6, T7, T12 vertebral bodies. Multilevel degenerative disc disease 4. No intra-abdominal abscess. 5. Ventriculoperitoneal shunt catheter 6. Generalized subcutaneous edema consistent with anasarca The exam was performed using radiation dose optimization techniques including, but not limited to, automated exposure control, adjustment of the mA and/or kV according to patient size and use of iterative reconstruction technique. Interpreted and Authenticated by: Sixto Meneses 03/04/22
[2022-03-04] MEDS: DONEPEZIL 10 MG TABLET PO SCH (21:02)
[2022-03-04] MEDS: TAMSULOSIN 0.4 MG CAPSULE PO SCH (21:02)
[2022-03-05] MEDS: 0.9 % SODIUM CHLORIDE 10 ML SYRINGE IV SCH ×2 (05:42→13:28)
[2022-03-05 06:36] LABS: Basophils # (Auto) 0.02 K/mcL (0.00-0.30); Basophils % (Auto) 0.2 % (0.0-2.0); Eosinophils # (Auto) 0.06 K/mcL (0.00-0.70); Eosinophils % (Auto) 0.5 % (0.0-7.0); Hematocrit 35.2 % (40.1-51.0); Hemoglobin 11.7 g/dL (13.7-17.5); Lymphocytes # (Auto) 0.91 K/mcL (1.50-4.80); Lymphocytes % (Auto) 7.8 % (15.5-49.0); Mean Corpuscular HGB Conc 33.2 g/dL (31.0-36.0); Mean Platelet Volume 10.2 fL (7.4-10.4); Monocytes # (Auto) 0.85 K/mcL (0.10-0.90); Monocytes % (Auto) 7.3 % (1.0-12.0); Neutrophils % (Auto) 83.9 % (38.0-78.0); Platelet Count 235 K/mcL (140-440); Red Cell Distribution Width 14.2 % (11.5-14.5); WBC 11.7 K/mcL (4.5-11.0)
[2022-03-05 06:41] LABS: Blood Urea Nitrogen 24 mg/dL (8-23); Carbon Dioxide 26 mmol/L (22-30); Chloride 109 mmol/L (96-108); Glomerular Filtration Rate 81; Glucose 64 mg/dL (70-105)
[2022-03-05] MEDS: INSULIN LISPRO 1 UNIT/0.01 ML UNIT SQ SCH ×3 (07:34→13:15)
[2022-03-05] MEDS ORDERED: POTASSIUM CHLORIDE 20 MEQ TABLET PO ONE (08:22)
[2022-03-05 10:07] LABS: POC Calcium, Ionized 1.19 (1.16-1.32); POC Creatinine 1.7 (0.6-1.2); POC Potassium 4.6 (3.3-5.1)
[2022-03-05] MEDS: LISINOPRIL 20 MG TABLET PO SCH (10:46)
[2022-03-05] MEDS: OMEPRAZOLE 20 MG CAPSULE PO SCH (10:47)
[2022-03-05] MEDS: MEMANTINE 10 MG TABLET PO SCH (10:47)
[2022-03-05] MEDS: ENOXAPARIN 40 MG/0.4 ML SYRINGE SQ SCH (10:53)
--- NOTE | 2022-03-05 12:29 | Discharge Summary ---
Discharge Provider Provider IMPORTANT FOLLOW-UP INFORMATION FOR PCP: 1. LTC placement 2. Swallow assessment Patient information: Note initiated : 03/05/22 at 12:28 pm Service Date, if different from initiated Date: [] Patient: Ronald Purcell 86 y/o M admitted on 03/02/22 for UTI. Chief Complaint: [] Date of admission: 03/02/22 16:30 Discharge date: 03/05/22 Primary care physician: Honorio Curtis MD Consults: 03/02/22 Consult to Physician [CONS] Stat Comment: Consulting Provider: Pal Vaughn Reason For Exam: Physician to Consult Attending physician on discharge: Pal Vaughn COURSE Hospital Course Hospital course: History of present illness: Mr. 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 The patient is unable to provide a reliable history however the and daughter were present at the bedside to provide a secondhand account. They state that for the last 2 days, they have been having difficulty controlling the patient's blood sugars despite insulin. He has not had much of an appetite. He has not been eating or drinking much. The patient was recently diagnosed with COVID-19 last week and was treated with Paxlovid. Unfortunately, the patient also developed a urinary tract infection and was treated with cefuroxime. On arrival, he was hemodynamically stable and afebrile. He was found to have a blood sugar greater than 600. His anion gap was elevated and he was found to be acidotic. He was positive for ketones. He was given 2 L bolus in the ER and started on an insulin infusion. The hospitalist service was asked admit the patient for further management and evaluation of his diabetic ketoacidosis A/P Narrative: The patient likely developed diabetic ketoacidosis due to underlying infectious process as he was diagnosed with COVID and a urinary tract infection unfortunately. In terms of his DKA, we will continue insulin infusion and when his blood sugars drop below 300, will start D5W. We will stop the insulin infusion once his anion gap is closed. We will monitor and replete his electrolytes closely. Continue LR 100 cc an hour. The patient will be started on ceftriaxone for his urinary tract infection. We will touch base with infection prevention regarding isolation precautions. His medication reconciliation is pending. 03/03: The patient's anion gap has now closed. I have started Lantus 30 units daily and insulin sliding scale. Her carb controlled diet has been resumed. He will continue ceftriaxone for his urinary tract infection. The patient is asymptomatic from a respiratory standpoint. He will need to work with physical therapy and Occupational Therapy. He may need a assisted facility. The states that she has trouble looking after him at home. 03/04: Due to the patient's ongoing low-grade fevers, will obtain CT chest abdomen pelvis. He is having some liquid stool however has not had a temp greater than 100.4 and his white blood cell count was normal. We will start Imodium. He is continuing ceftriaxone for UTI. The patient's IV fluids will be discontinued today. His electrolytes will be replaced with K-Phos rider as his potassium and phosphorus were low. He will be transferred to [facility]. Social work and case management will look for placement 03/05: The patient's DKA has resolved. He is completed a course of antibiotics for his urinary tract infection. Antibiotic therapy was started prior to admission and we continue ceftriaxone for [address] chest abdomen pelvis was performed which was concerning for tree-in-bud infiltrates which may have been in the setting of recent viral pneumonia due to COVID-19. The patient will be discharged to assisted facility. Discharge diagnosis: Diabetic ketoacidosis, complicated UTI, failure to thrive, recent COVID-19 Time Spent with Patient Time attestation: Total time spent providing and/or coordinating discharge services: Time spent: Greater than 30 minutes EXAM Constitutional Vitals: Temp Pulse Resp BP Pulse Ox O2 Del Method O2 Flow Rate 98.5 F 98 H 22 112/69 91 2 03/05/22 12:13 03/05/22 12:13 03/05/22 12:13 03/05/22 12:13 03/05/22 12:13 03/05/22 12:13 03/05/22 12:13 General appearance: average body habitus Head Head exam: Present atraumatic, normal inspection and normocephalic Eye Eye exam: Present EOMI, normal appearance and PERRL; Absent conjunctival injection ENT ENT exam: Present normal exam; Absent mucous membranes dry Neck Neck exam: Present full ROM; Absent lymphadenopathy Respiratory Respiratory exam: Present normal respiratory exam, decreased breath sounds and CTAB; Absent respiratory distress or wheezes Cardiovascular Cardiovascular exam: Present normal rate and rhythm and RRR; Absent JVD GI/Abdominal GI/Abdominal exam: Present normal bowel sounds and soft; Absent diminished bowel sounds, distended, guarding, mass, rebound or tenderness Neurological Exam Neurological exam: Present alert Psychiatric Psychiatric exam: Present normal affect and normal mood Skin Skin exam: Present intact and warm; Absent erythema, pallor, petechiae or rash Discharge Data Data Completed and Pending Labs on day of discharge: Labs from last 24 hours 03/05/22 03/05/22 03/02/22 05:09 05:09 12:58 WBC 11.7 H RBC 4.00 L Hgb 11.7 L Hct 35.2 L POC Hct 42.0 MCV 88.0 MCH 29.3 MCHC 33.2 RDW 14.2 Plt Count 235 MPV 10.2 Immature Gran % (Auto) 0.3 Neut % (Auto) 83.9 H Lymph % (Auto) 7.8 L [place] % (Auto) 7.3 Eos % (Auto) 0.5 Baso % (Auto) 0.2 Lymph # (Auto) 0.91 L [place] # (Auto) 0.85 Eos # (Auto) 0.06 Baso # (Auto) 0.02 Immature Gran # 0.03 Absolute Neutrophils 9.85 H POC VBG pH POC VBG pCO2 at Temp POC VBG pO2 POC VBG HCO3 POC VBG Total CO2 POC Venous O2 Sat POC VBG Base Excess VBG Lactic Acid POC Sodium 135 Sodium 142 POC Potassium 4.6 Potassium 2.9 L* POC Chloride 102 Chloride 109 H Carbon Dioxide 26 POC Total CO2 16.0 L Anion Gap 7.0 L POC BUN 52 H BUN 24 H Creatinine 0.8 POC Creatinine 1.7 H GFR Calculation 81 Glucose 64 L POC Glucose 666 H* Calcium 8.0 L POC WB Ioniz Calcium 1.19 03/02/22 12:57 WBC RBC Hgb Hct POC Hct MCV MCH MCHC RDW Plt Count MPV Immature Gran % (Auto) Neut % (Auto) Lymph % (Auto) [place] % (Auto) Eos % (Auto) Baso % (Auto) Lymph # (Auto) [place] # (Auto) Eos # (Auto) Baso # (Auto) Immature Gran # Absolute Neutrophils POC VBG pH 7.29 L POC VBG pCO2 at Temp 30.8 L POC VBG pO2 35 POC VBG HCO3 14.8 L POC VBG Total CO2 16.0 L POC Venous O2 Sat 62.0 POC VBG Base Excess -12.0 L VBG Lactic Acid 2.9 H POC Sodium Sodium POC Potassium Potassium POC Chloride Chloride Carbon Dioxide POC Total CO2 Anion Gap POC BUN BUN Creatinine POC Creatinine GFR Calculation Glucose POC Glucose Calcium POC WB Ioniz Calcium Discharge Plan Patient/Caregiver Discharge Instructions Activity: as per physical therapy Diet: Consistent Carbohydrate Instructions: Urinary Tract Infection in Men (DC), Diabetic Ketoacidosis (DC), COVID-19 (Coronavirus Disease 2019)(GEN) Prescriptions: Continued cholecalciferol (vitamin D3) 25 mcg (1,000 unit) capsule 1,000 unit PO BID cyanocobalamin (vitamin B-12) 1,000 mcg capsule 1,000 mcg capsule 1,000 mcg PO QDAY memantine [Namenda] 10 mg tablet 10 mg PO BID donepezil 10 mg tablet 20 mg PO HS aspirin [Adult Aspirin Regimen] 81 mg tablet,delayed release (DR/EC) 81 mg PO .every other day ferrous sulfate [Feosol] 325 mg (65 mg iron) tablet 325 mg PO HS Hold Instructions: Doctor's Order lisinopril 40 mg tablet 1 tab PO QDAY insulin lispro [Humalog KwikPen Insulin] 100 unit/mL insulin pen 40 unit subcut QDAY insulin glargine [Lantus Solostar U-100 Insulin] 100 unit/mL (3 mL) insulin pen 14 unit subcut HS omeprazole 40 mg capsule,delayed release(DR/EC) 40 mg PO DAILY tamsulosin 0.4 mg capsule 0.4 mg PO HS levothyroxine 50 mcg Capsule 50 mcg PO QDAY insulin lispro 100 unit/mL insulin pen See Rx Instructions .ROUTE .COMPLEX Rx Instructions: Humalog dosing with meals: Base dose 4 units breakfast, Lunch 6 units, Dinner 7 Units for BS over 150 base does plus 1 unit per 50 points for BS less than 80-89 cut meal dose by 1 unit less than 80 cut by 2 units and recheck Follow Up Plan Follow up with: Honorio Curtis MD [Primary Care Provider] - Patient Disposition: Xfer SNF Prognosis: Fair Rehab Potential: Fair I certify that the patient requires SNF services: Yes Overall status at discharge: patient is progressing back to baseline Discharge Orders: Discharge Order (Routine); Ordered 03/05/22 Ordered By: Pal TRAVIS VTE Deep Vein Thrombosis/Pulmonary Embolism Present on Admission: No
[2022-03-05] MEDS: INSULIN GLARGINE, HUMAN 1 UNIT/0.01 ML SQ SCH (13:50)
== END 2022-03-05 14:25 | DRG 638 ==
LOC: ED 12:36 → ICU 16:30 → MEDSUR 03-04 16:48
PROVIDERS: ADMIT Student in an Organized Health Care Education/Training Program; ATTEND Student in an Organized Health Care Education/Training Program